=== PATIENT | female | born 1985 | race American Indian/Alaskan Native ===

== ENCOUNTER 2017-02-17 18:05 | Emergency (ER) | payer MEDICARE ==
--- NOTE | 2017-02-17 19:15 | Emergency Department Report ---
HPI - General Chief Complaint: Syncope Time Seen by Provider: 02/17/17 18:49 - HPI HPI: This is a 31-year-old Afro-[place] female presents to the emergency department by EMS from home after she has what appears to be a syncopal episode. She was on her way to the bathroom when her saw her go down unconscious. Unknown time unconscious. There is no report of any seizure like activity. The patient denies any illicit drug use or any other medication taken prior to this event. She currently denies any physical complaints other than some chronic dental pain. Her primary care physician is Dr. Barrientos. She denies any past medical history. She has some psychiatric history but says that that is not an issue for right now and denies any suicidal or homicidal ideations or attempts. No recent travel or sick contacts at home. ED Past Medical Hx - Past Medical History Hx Hypertension: No Hx Heart Attack/AMI: No Hx Congestive Heart Failure: No Hx Diabetes: No Hx Deep Vein Thrombosis: No Hx Pulmonary Embolism: No Hx Liver Disease: No Hx Renal Disease: No Hx Sickle Cell Disease: No Hx Arthritis: No Hx Seizures: No Hx Kidney Stones: No Hx COPD: No Hx Tuberculosis: No Hx Dementia: No Hx HIV: No Additional medical history: hx pancreatitis, anemia. Anxiety - Surgical History Hx Coronary Stent: No Hx Pacemaker: No Hx Internal Defibrillator: No Additional Surgical History: csearean x 3, vag mesh surg x 6, back surg; hysterectomy 2014 - Social History Smoking Status: Current Some Day Smoker Substance Use Type: None - Medications Home Medications: Home Medications Medication Instructions Recorded Confirmed Last Taken Type Acetaminophen/Codeine [Tylenol #3] 1 tab PO Q6H PRN #12 tab 05/04/16 Unknown Rx Penicillin Vk [Veetids TAB] 500 mg PO QID #40 tablet 05/04/16 Unknown Rx Tobramycin 0.3% [Tobrex] 1 drop OD Q8HR #1 bottle 05/04/16 Unknown Rx Nitrofurantoin [place]/M-Cryst 100 mg PO Q12HR #14 capsule 02/17/17 Unknown Rx [Macrobid CAP] ED Review of Systems ROS: Stated complaint: SYNCOPY Other details as noted in HPI Comment: All other systems reviewed and negative Constitutional: denies: chills, fever Eyes: denies: eye pain, eye discharge, vision change ENT: denies: ear pain, throat pain Respiratory: denies: cough, shortness of breath, wheezing Cardiovascular: syncope. denies: chest pain Gastrointestinal: denies: abdominal pain, diarrhea Genitourinary: denies: urgency, dysuria, discharge Musculoskeletal: denies: back pain, joint swelling, arthralgia Skin: denies: rash, lesions Neurological: denies: headache, weakness, paresthesias Physical Exam - Physical Exam Vital Signs: Vital Signs 02/17/17 02/17/17 18:31 18:37 Temperature 98.0 F Pulse Rate 78 83 Respiratory 16 13 Rate Blood Pressure 100/61 Blood Pressure 96/54 [Right] O2 Sat by Pulse 100 100 Oximetry Physical Exam: GENERAL: The patient is well-developed well-nourished. HEENT: Normocephalic. Atraumatic. Extraocular motions are intact. Patient has moist mucous membranes. Pupils equal reactive to light bilaterally. No nystagmus. NECK: Supple. Trachea is midline. CHEST/LUNGS: Clear to auscultation. There is no respiratory distress noted. HEART/CARDIOVASCULAR: Regular. There is no tachycardia. There is no gallop rub or murmur. ABDOMEN: Abdomen is soft, nontender. Patient has normal bowel sounds. There is no abdominal distention. SKIN: Skin is warm and dry. NEURO: The patient is awake, alert, and oriented. The patient is cooperative. The patient has no focal neurologic deficits. The patient has normal speech. Cranial nerves II through XII grossly intact. No dysmetria. No pronator drift. MUSCULOSKELETAL: There is no tenderness or deformity. There is no limitation range of motion. There is no evidence of acute injury. Muscle strength 5 out of 5 upper and lower extremities bilaterally. ED Course Vital Signs 02/17/17 02/17/17 18:31 18:37 Temperature 98.0 F Pulse Rate 78 83 Respiratory 16 13 Rate Blood Pressure 100/61 Blood Pressure 96/54 [Right] O2 Sat by Pulse 100 100 Oximetry ED Medical Decision Making - Lab Data Result diagrams: 02/17/17 19:15 02/17/17 19:15 - EKG Data -: EKG Interpreted by Mo EKG shows normal: sinus rhythm, axis, intervals, QRS complexes, ST-T waves Rate: normal - EKG Data When compared to previous EKG there are: previous EKG unavailable Interpretation: normal EKG - Medical Decision Making This is a 31-year-old female presents to the emergency department after she had a syncopal episode at home. She was evaluated with physical exam, labs and EKG. EKG is normal without ST elevation TN, dysrhythmia or ischemia. Vital signs stable throughout her ED course. Physical exam does not show any focal, motor or sensory deficits and she has normal cranial nerves. Labs are mostly unremarkable and do not show any etiology of the patient's symptoms. Urine drug screen is positive for benzodiazepine and marijuana. The patient is on benzodiazepine as treatment for her anxiety. There were 21 white blood cells found in the urine so the patient will be placed on a course of Macrobid for a mild urinary tract infection. She was seen ambulatory in the emergency department and appeared stable. As this was the first syncopal episode in a long time and there was no further episodes of passing out or any seizure-like activity and there are no neurological deficits, did not feel that the patient required CT imaging of the head at this time. She'll be discharged home to follow-up with her primary care doctor, Dr. Barrientos, but she has been encouraged to return to the emergency department with any further episodes or any acute distress. She understands and agrees to plan. - Differential Diagnosis vasovagal, orthostatic hypotension, seizure, substance abuse Critical Care Time: No Critical care attestation.: If time is entered above; I have spent that time in minutes in the direct care of this critically ill patient, excluding procedure time. ED Disposition Clinical Impression: Syncope Qualifiers: Syncope type: unspecified Qualified Code(s): R55 - Syncope and collapse UTI (urinary tract infection) Qualifiers: Urinary tract infection type: acute cystitis Hematuria presence: without hematuria Qualified Code(s): N30.00 - Acute cystitis without hematuria Disposition: DISCHARGED TO HOME OR SELFCARE Is pt being admited?: No Condition: Stable Instructions: Urinary Tract Infection in Women (ED), Syncope (ED) Additional Instructions: Please follow-up with your primary care doctor in the next few days. Return to the emergency department with any further episodes of passing out, any seizure- like activity, or any acute distress. Prescriptions: Nitrofurantoin B[place]/M-Cryst [Macrobid CAP] 100 mg PO Q12HR #14 capsule Referrals: BINU BARRIENTOS MD [Referring] - LARISSA Time of Disposition: 22:17
[2017-02-17 19:38] LABS: Urine Drugs of Abuse Note Disclamer
[2017-02-17 19:46] LABS: Basophils % (Auto) 1.2 % (0.0-1.8); Eosinophils % (Auto) 1.7 % (0.0-4.3); Hematocrit 38.7 % (30.3-42.9); Hemoglobin 12.3 gm/dl (10.1-14.3); Mean Corpuscular HGB Conc 32 % (30-34); Mean Corpuscular Hemoglobin 28 pg (28-32); Mean Corpuscular Volume 86 fl (79-97); Red Blood Count 4.48 M/mm3 (3.65-5.03); Red Cell Distribution Width 13.4 % (13.2-15.2); White Blood Count 7.1 K/mm3 (4.5-11.0)
[2017-02-17 19:52] LABS: Bacteria,Urine 1+ /HPF (Negative); Bilirubin,Urine NEG (Negative); Blood,Urine NEG (Negative); Ketones,Urine NEG (Negative); Leukocyte Esterase,Urine MOD (Negative); Mucus,Urine FEW /HPF; Nitrite,Urine POS (Negative); Protein,Urine <15 mg/dL mg/dL (Negative); Urobilinogen,Urine < 2.0 mg/dL (<2.0)
[2017-02-17 20:02] LABS: Alanine Aminotransferase 14 units/L (7-56); Albumin 4.2 g/dL (3.9-5); Albumin/Globulin Ratio 1.3 %; Alkaline Phosphatase 81 units/L (35-129); Anion Gap 21 mmol/L; BUN/Creatinine Ratio 12.22; Blood Urea Nitrogen 11 mg/dL (7-17); Calcium 9.2 mg/dL (8.4-10.2); Carbon Dioxide 22 mmol/L (22-30); Chloride 102.2 mmol/L (98-107); Glucose 75 mg/dL (65-100); Potassium 3.7 mmol/L (3.6-5.0); Sodium 141 mmol/L (137-145); Total Protein 7.5 g/dL (6.3-8.2)
[2017-02-17 20:05] LABS: Platelet Count 279 K/mm3 (140-440)
[2017-02-17] MEDS ORDERED: MACROBID PO ONE (20:13)
[2017-02-17] MEDS ORDERED: TORADOL IV ONE (21:00)
[2017-02-17 22:36] VITALS: BP 96/55
== END 2017-02-17 22:30 | disposition home or self-care (01) ==
LOC: ED 18:05
DX: R55 Syncope and collapse (principal); N30.00 Acute cystitis without hematuria; F17.200 Nicotine dependence, unspecified, uncomplicated
CPT/HCPCS: 36415; 80053; 80307; 81001; 84443; 84484; 84703; 85025; 93005; 93010; 96374; 99284; J1885

== ENCOUNTER 2018-02-01 06:56 | Emergency (ER) | payer MEDICARE ==
[2018-02-01] MEDS ORDERED: BOOSTRIX IM ONE (11:02)
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
[2018-02-01 11:48] VITALS: BP 99/74
== END 2018-02-01 11:48 | disposition home or self-care (01) ==
LOC: ED 06:56
DX: L30.8 Other specified dermatitis (principal); F41.9 Anxiety disorder, unspecified; Z86.2 Personal history of diseases of the blood and blood-forming organs and certain disorders involving the immune mechanism; F17.200 Nicotine dependence, unspecified, uncomplicated
CPT/HCPCS: 90471; 90715; 99283

== ENCOUNTER 2018-05-18 15:38 | Emergency (ER) | payer MEDICARE ==
[2018-05-18 16:09] VITALS: BP 104/66
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
[2018-05-18] MEDS ORDERED: TYLENOL PO ONE (17:18)
--- NOTE | 2018-05-18 17:24 | Emergency Department Report ---
ED Lower Extremity HPI - General Chief Complaint: Extremity Injury, Lower Stated Complaint: LEFT ANKLE PAIN Time Seen by Provider: 05/18/18 17:10 Source: patient Mode of arrival: Wheelchair Limitations: Physical Limitation - History of Present Illness Initial Comments: This is a 32-year-old female nontoxic, well nourished in appearance, no acute signs of distress presents to the ED with c/o of left knee pain 1 day. Patient stated that she tripped and twisted her ankle. Patient denies any other trauma. Patient denies any numbness, tingling, fever, chills, nausea, vomiting, chest pain, shortness of breath, headache, stiff neck. Patient denies any joint swelling or joint redness. Patient denies decreased range of motion. Patient stated has decreased gait due to pain. Patient denies any allergies or significant past medical history. MD Complaint: ankle injury -: days(s) (1) Injury: Ankle: Left Type of Injury: inversion Place: home Severity: mild Severity scale (0 -10): 8 Improves With: immobilization Worsens With: weight bearing, movement, palpation Associated Symptoms: swelling, unable to bear weight. denies: snap/pop sensation, numbness, tingling, able to partially bear weight, ambulatory - Related Data Previous Rx's Medication Instructions Recorded Last Taken Type Acetaminophen/Codeine [Tylenol #3] 1 tab PO Q6H PRN #12 tab 05/04/16 Unknown Rx Penicillin Vk [Veetids TAB] 500 mg PO QID #40 tablet 05/04/16 Unknown Rx Tobramycin 0.3% [Tobrex] 1 drop OD Q8HR #1 bottle 05/04/16 Unknown Rx Nitrofurantoin Glynn/M-Cryst 100 mg PO Q12HR #14 capsule 02/17/17 Unknown Rx [Macrobid CAP] Nystatin 15 gm TP BID #1 cream..g. 02/01/18 Unknown Rx diphenhydrAMINE [Benadryl] 25 mg IV Q6HR PRN #20 vial 02/01/18 Unknown Rx predniSONE [Deltasone] 50 mg PO QDAY 14 Days #11 tab 02/01/18 Unknown Rx Acetaminophen/Codeine [Tylenol 1 tab PO Q6H PRN #12 tab 05/18/18 Unknown Rx /Codeine # 3 tab] Allergies Allergy/AdvReac Type Severity Reaction Status Date / Time No Known Allergies Allergy Verified 02/01/18 07:14 ED Review of Systems ROS: Stated complaint: LEFT ANKLE PAIN Other details as noted in HPI Constitutional: denies: chills, fever Eyes: denies: eye pain, eye discharge, vision change ENT: denies: ear pain, throat pain Respiratory: denies: cough, shortness of breath, wheezing Cardiovascular: denies: chest pain, palpitations Endocrine: no symptoms reported Gastrointestinal: denies: abdominal pain, nausea, diarrhea Genitourinary: denies: urgency, dysuria, discharge Musculoskeletal: denies: back pain, joint swelling, arthralgia Skin: denies: rash, lesions Neurological: denies: headache, weakness, paresthesias Psychiatric: denies: anxiety, depression Hematological/Lymphatic: denies: easy bleeding, easy bruising ED Past Medical Hx - Past Medical History Previous Medical History?: Yes Hx Hypertension: No Hx Heart Attack/AMI: No Hx Congestive Heart Failure: No Hx Diabetes: No Hx Deep Vein Thrombosis: No Hx Pulmonary Embolism: No Hx Liver Disease: No Hx Renal Disease: No Hx Sickle Cell Disease: No Hx Arthritis: Yes Hx Seizures: No Hx Kidney Stones: No Hx COPD: No Hx Tuberculosis: No Hx Dementia: No Hx HIV: No Additional medical history: hx pancreatitis, anemia. Anxiety - Surgical History Past Surgical History?: Yes Hx Coronary Stent: No Hx Pacemaker: No Hx Internal Defibrillator: No Additional Surgical History: csearean x 3, vag mesh surg x 6, back surg; hysterectomy 2014 - Social History Smoking Status: Current Every Day Smoker Substance Use Type: None - Medications Home Medications: Home Medications Medication Instructions Recorded Confirmed Last Taken Type Acetaminophen/Codeine [Tylenol #3] 1 tab PO Q6H PRN #12 tab 05/04/16 Unknown Rx Penicillin Vk [Veetids TAB] 500 mg PO QID #40 tablet 05/04/16 Unknown Rx Tobramycin 0.3% [Tobrex] 1 drop OD Q8HR #1 bottle 05/04/16 Unknown Rx Nitrofurantoin Glynn/M-Cryst 100 mg PO Q12HR #14 capsule 02/17/17 Unknown Rx [Macrobid CAP] Nystatin 15 gm TP BID #1 cream..g. 02/01/18 Unknown Rx diphenhydrAMINE [Benadryl] 25 mg IV Q6HR PRN #20 vial 02/01/18 Unknown Rx predniSONE [Deltasone] 50 mg PO QDAY 14 Days #11 tab 02/01/18 Unknown Rx Acetaminophen/Codeine [Tylenol 1 tab PO Q6H PRN #12 tab 05/18/18 Unknown Rx /Codeine # 3 tab] ED Physical Exam - General Limitations: Physical Limitation General appearance: alert, in no apparent distress - Head Head exam: Present: atraumatic, normocephalic - Eye Eye exam: Present: normal appearance Pupils: Present: normal accommodation - ENT ENT exam: Present: normal exam, mucous membranes moist - Neck Neck exam: Present: normal inspection, full ROM. Absent: tenderness, meningismus, lymphadenopathy - Respiratory Respiratory exam: Present: normal lung sounds bilaterally. Absent: respiratory distress, wheezes, rales, rhonchi, stridor, chest wall tenderness, accessory muscle use, decreased breath sounds, prolonged expiratory - Cardiovascular Cardiovascular Exam: Present: regular rate, normal rhythm, normal heart sounds. Absent: irregular rhythm, systolic murmur, diastolic murmur, rubs, gallop - GI/Abdominal GI/Abdominal exam: Present: soft, normal bowel sounds. Absent: distended, tenderness, guarding, rebound, rigid, diminished bowel sounds - Rectal Rectal exam: Present: deferred - Extremities Exam Extremities exam: Present: normal inspection, full ROM, tenderness, normal capillary refill. Absent: joint swelling - Expanded Lower Extremity Exam Left Hip exam: Present: normal inspection, full ROM. Absent: tenderness, swelling Upper Leg exam: Present: normal inspection, full ROM. Absent: tenderness, swelling Knee exam: Present: normal inspection, full ROM. Absent: tenderness, swelling Lower Leg exam: Present: normal inspection, full ROM. Absent: tenderness, swelling Ankle exam: Present: normal inspection, full ROM, tenderness, swelling, ecchymosis. Absent: abrasion, laceration, deformity, crepidus, dislocation, erythema, anterior draw sign Foot/Toe exam: Present: normal inspection, full ROM. Absent: tenderness, swelling, abrasion, laceration, ecchymosis, deformity, crepidus, dislocation, erythema, amputation, puncture wound, foreign body, calcaneal tenderness, tenderness at base of 5th metatarsal, nail avulsion, subungual hematoma Neuro vascular tendon exam: Present: no vascular compromise. Absent: pulse deficit, abnormal cap refill, motor deficit, sensory deficit, tendon deficit, extremity cold to touch, pallor, abnormal 2-point discrimination, decreased fine /light touch, foot drop, peroneal nerve deficit, significant pain with passive ROM of distal joint Gait: Positive: unable to bear weight - Back Exam Back exam: Present: normal inspection, full ROM - Neurological Exam Neurological exam: Present: alert, oriented X3, normal gait - Psychiatric Psychiatric exam: Present: normal affect, normal mood - Skin Skin exam: Present: warm, dry, intact, normal color. Absent: rash ED Course Vital Signs 05/18/18 15:55 Temperature 98.4 F Pulse Rate 115 H Respiratory 18 Rate Blood Pressure 104/66 O2 Sat by Pulse 99 Oximetry - Reevaluation(s) Reevaluation #1: 05/18/18 17:26 Patient is speaking in full sentences with no signs of distress noted. ED Lower Extremity MDM - Medical Decision Making This is a 32-year-old female that presents with left fibular fracture. Patient is stable and was examined by me. I referred patient to an orthopedic doctor for further evaluation for possible MRI. X-ray has been obtained and dictated by the radiologist. Patient is notified of the x-ray report with noted by the patient. Not warm to touch. No signs of cellulites present. Patient received veronica posterior short leg splint and crutches and was educated by RN how to a use crutches. Post splint assessment: neurovasular intact; normal cap refill < 2 second; normal sensation; denies decreaed sensation; normal ROM of digits. Patient was instructed to RICE therapy. Patient received Tylenol for pain. Patient is discharged with Tylenol with codeine. At time of discharge, the patient does not seem toxic or ill in appearance. No acute signs of distress noted. Patient agrees to discharge treatment plan of care. No further questions noted by the patient. Critical care attestation.: If time is entered above; I have spent that time in minutes in the direct care of this critically ill patient, excluding procedure time. ED Disposition Clinical Impression: Left fibular fracture Qualifiers: Encounter type: initial encounter Fibula location: distal Fracture type: closed Fracture morphology: unspecified fracture morphology Qualified Code(s): S82.832A - Other fracture of upper and lower end of left fibula, initial encounter for closed fracture Disposition: DC-01 TO HOME OR SELFCARE Is pt being admited?: No Does the pt Need Aspirin: No Condition: Stable Instructions: Ankle Fracture (ED), RICE Therapy (ED), Acetaminophen/Codeine ( By mouth), Splint Care (ED), Crutch Instructions (ED) Additional Instructions: Follow-up with a orthopedic primary care doctor in 3-5 days or if symptoms worsen and continue return to emergency room as soon as possible. Do not operate any machinery while taking Tylenol with codeine as this may cause drowsiness. Prescriptions: Acetaminophen/Codeine [Tylenol /Codeine # 3 tab] 1 tab PO Q6H PRN #12 tab PRN Reason: Pain , Severe (7-10) Referrals: ELO FAUSTIN MD [Staff Physician] - 3-5 Days PRIMARY CAREMD [Referring] - 3-5 Days [facility] [Outside] - 3-5 Days Forms: Work/School Release Form(ED)
== END 2018-05-18 18:12 | disposition home or self-care (01) ==
LOC: ED 15:38
DX: S82.832A Other fracture of upper and lower end of left fibula, initial encounter for closed fracture (principal); M19.90 Unspecified osteoarthritis, unspecified site; F41.9 Anxiety disorder, unspecified; F17.200 Nicotine dependence, unspecified, uncomplicated; Z86.2 Personal history of diseases of the blood and blood-forming organs and certain disorders involving the immune mechanism; Z90.710 Acquired absence of both cervix and uterus; W01.198A Fall on same level from slipping, tripping and stumbling with subsequent striking against other object, initial encounter; Y93.89 Activity, other specified; Y92.89 Other specified places as the place of occurrence of the external cause; Y99.8 Other external cause status